=== PATIENT | female | born 1990 | race Caucasian/White ===

== ENCOUNTER 2018-01-14 09:17 | Day surgery (SDC) | payer OTHER ==
[~2018-01-14] VITALS: Ht 167.6 cm; Wt 102.0 kg
[~2018-01-14 09:17] MED LIST: ALPR.25 PO; ALPR.5 PO; AZIT250 PO; BUPR150ER PO; CLIN100S; CLIN150; CYCL10 PO; DOXY100 PO; ENOX40I SC; FLUO10 PO; HYDACE10B PO; HYDACE5 PO; IBUP600 PO; IBUP800 PO; K-Dur20 MEQ PO; LITH300ER; METO10 PO; METR500 PO; NAPR375 PO; ONDA4 PO; OXCA150 PO; OXYACE5T PO; Percocet 5-3251 EACH PO; Peridex480 ML SS; RXOXYACE PO; SULTRIDS PO; TOPI25 PO; TRAM50 PO; VENL150ER PO; VENL25 PO; ZOLP5 PO; Zofran Odt4 MG SL
== END 2018-01-14 14:02 | disposition home or self-care (01) ==
LOC: ORSCSDS 09:17
PROVIDERS: Podiatrist Foot & Ankle Surgery
PROC: 0QBG4ZZ Excision of Right Tibia, Percutaneous Endoscopic Approach (ICD-10-PCS; principal; 2018-01-14 10:30)
PROC: 0QBL4ZZ Excision of Right Tarsal, Percutaneous Endoscopic Approach (ICD-10-PCS; principal; 2018-01-14 10:30)
PROC: 0SBF4ZZ Excision of Right Ankle Joint, Percutaneous Endoscopic Approach (ICD-10-PCS; principal; 2018-01-14 10:30)
DX: M93.271 Osteochondritis dissecans, right ankle and joints of right foot (principal); F41.9 Anxiety disorder, unspecified; F32.9 Major depressive disorder, single episode, unspecified; M79.7 Fibromyalgia
CPT/HCPCS: C1762; J0171; J1885; J2250; J3010; J7120

== ENCOUNTER 2018-07-15 06:32 | Day surgery (SDC) | payer OTHER ==
[~2018-07-15] VITALS: Ht 167.6 cm; Wt 112.6 kg
--- NOTE | 2018-07-15 09:15 | NUR ---
07/15/18 0915 Brittni Bess PT TRANSFERRED INTO THE RECLINER WITH STAND BY ASSIST FROM RN. RN PROVIDED ADDITIONAL WARM BLANKETS AND ELEVATED OP LIMB. VSS. ICE PACK APPLIED BEHIND THE LEFT KNEE. CAP REFILL IN LEFT TOES LESS THAN 3 SECONDS AND WARM AND PINK TOES. PT DENIES NAUSEA. PT STATES HER PAIN IS 6/10 AND NOT TOLERABLE AT THIS TIME. RN IS TREATING WITH IV PAIN MEDICINE PER DR'S ORDERS. PT IS ACCOMPANIED BY HER BOYFRIEND AT THIS TIME. PT IS TOLERATING PO FLUIDS WELL. SNACKS ARE AT CHAIRSIDE.
== END 2018-07-15 09:55 | disposition home or self-care (01) ==
LOC: ORSCSDS 06:32
PROVIDERS: Podiatrist Foot & Ankle Surgery
PROC: 0SBG4ZZ Excision of Left Ankle Joint, Percutaneous Endoscopic Approach (ICD-10-PCS; principal; 2018-07-15 07:30)
DX: M65.872 Other synovitis and tenosynovitis, left ankle and foot (principal); M19.072 Primary osteoarthritis, left ankle and foot; M25.572 Pain in left ankle and joints of left foot; E66.01 Morbid (severe) obesity due to excess calories; Z68.39 Body mass index [BMI] 39.0-39.9, adult
CPT/HCPCS: J0171; J1100; J1885; J2250; J2405; J3010; J7120

== ENCOUNTER 2019-01-08 19:43 | Emergency (ER) | payer OTHER ==
[~2019-01-08] VITALS: Ht 167.6 cm; Wt 108.4 kg
[2019-01-08] MEDS ORDERED: TRAM50 PO (21:40)
== END 2019-01-08 21:56 | disposition home or self-care (01) ==
LOC: ER 19:43
DX: S63.502A Unspecified sprain of left wrist, initial encounter (principal); W18.30XA Fall on same level, unspecified, initial encounter; Z88.0 Allergy status to penicillin; Z88.8 Allergy status to other drugs, medicaments and biological substances; Z88.1 Allergy status to other antibiotic agents
CPT/HCPCS: 29125; 73110; 99283-25

== ENCOUNTER → 2022-08-27 | Outpatient (CLI) | payer OTHER ==
[2022-08-27 18:34] LABS: BASOPHILS ABSOLUTE AUTO 0.06 K/mm3 (0.00-0.23); BASOPHILS PERCENT AUTO 1 % (0-2); EOSINOPHILS ABSOLUTE AUTO 0.38 K/mm3 (0.00-0.68); EOSINOPHILS PERCENT AUTO 3 % (0-6); Hematocrit 45.6 % (33.0-51.0); Hemoglobin 15.2 g/dL (11.5-16.0); IMMATURE GRAN ABSOLUTE AUTO 0.03 K/mm3 (0.00-0.10); IMMATURE GRAN PERCENT AUTO 0 % (0-1); LYMPHOCYTES ABSOLUTE AUTO 4.37 K/mm3 (0.84-5.20); LYMPHOCYTES PERCENT AUTO 36 % (21-46); MONOCYTES ABSOLUTE AUTO 0.87 K/mm3 (0.16-1.47); MONOCYTES PERCENT AUTO 7 % (4-13); Mean Corpuscular HGB 29.2 pg (26.0-34.0); Mean Corpuscular HGB Conc 33.3 g/dL (31.5-36.5); Mean Corpuscular Volume 88 fL (80-100); Mean Platelet Volume 9.6 fL (9.1-12.4); NEUTROPHILS ABSOLUTE AUTO 6.36 K/mm3 (1.96-9.15); NEUTROPHILS PERCENT AUTO 53 % (41-73); Platelet Count 283 K/mm3 (150-400); RDW Coefficient Variation 13.3 % (11.7-14.2); RDW Standard Deviation 43.2 fL (35.1-46.3); White Blood Cell Count 12.07 K/mm3 (4.00-11.30)
[2022-08-27 18:38] LABS: Bun/Creatinine Ratio 15.7 (12.0-20.0); Calcium, Blood 9.3 mg/dL (8.5-10.1); Creatinine, Blood 0.89 mg/dL (0.40-1.00)
== END | disposition home or self-care (01) ==
LOC: LAB SHORT 18:29
PROVIDERS: Physician Assistant Surgical
DX: R10.31 Right lower quadrant pain (principal)
CPT/HCPCS: 80048; 85025

== ENCOUNTER → 2024-11-27 | Outpatient (CLI) | payer OTHER ==
[2024-11-27 16:52] LABS: Candida Group, PCR NOT DETECTED (NOT DETECT); Candida glabrata-krusei, PCR NOT DETECTED (NOT DETECT)
[2024-11-27 17:16] LABS: Bacterial Vaginosis PCR Positive (NEGATIVE)
[2024-11-29 18:50] LABS: C. TRACHOMATIS BY TMA,THINPREP Negative (Negative); N. GONORRHOEAE BY TMA,THINPREP Negative (Negative); SPECIMEN SOURCE Not Provided
== END | disposition home or self-care (01) ==
LOC: LAB 13:47 → LAB SHORT 13:47
PROVIDERS: Family Medicine
DX: Z01.419 Encounter for gynecological examination (general) (routine) without abnormal findings (principal); Z11.3 Encounter for screening for infections with a predominantly sexual mode of transmission; N89.8 Other specified noninflammatory disorders of vagina
CPT/HCPCS: 81515; 87491; 87591